=== PATIENT | female | born 1955 | race Caucasian/White ===

== ENCOUNTER 2019-08-21 05:50 | Day surgery (SDC) | payer BC ==
[2019-08-21] MEDS ORDERED: ALFENTANIL HCL 500 MCG/1ML, 2ML AMP IV ONE (05:51)
[2019-08-21] MEDS ORDERED: LIDOCAINE 2% MDV (20MG/ML) 20ML VIAL IV ONE (05:51)
[2019-08-21] MEDS ORDERED: *PACU ONLY* KETAMINE HCL 10 MG/ML (20ML) VIAL IV ONE (05:51)
[2019-08-21] MEDS ORDERED: PROPOFOL 10 MG/ML VIAL IV ONE (05:51)
[2019-08-21] MEDS ORDERED: KETOROLAC 30 MG/ML VIAL IVP ONE (05:51)
[2019-08-21] MEDS ORDERED: MIDAZOLAM HCL 2MG/2ML VIAL IV ONE (05:51)
[2019-08-21] MEDS ORDERED: CEFAZOLIN 2 Gram 2 GM/50 ML BAG IVPB ONE (06:00)
[2019-08-21] MEDS ORDERED: RINGERS SOLUTION,LACTATED 1,000 ML IV ONE (06:30)
[2019-08-21] MEDS ORDERED: LIDOCAINE 2% MDV (20MG/ML) 20ML VIAL SQ ONE (07:45)
[2019-08-21] MEDS ORDERED: BUPIVACAINE 0.5% (5MG/ML) PF 30ML VIAL SQ ONE (07:45)
[2019-08-21] MEDS ORDERED: HYDROCODONE/APAP 7.5/325MG TABLET PO ONE (09:48)
--- NOTE | 2019-08-21 14:18 | Operative Note ---
DATE OF SURGERY: 08/21/2018 PREOPERATIVE DIAGNOSIS: Hallux rigidus left painful hammertoe second and third toes left foot. POSTOPERATIVE DIAGNOSIS: Hallux rigidus left painful hammertoe second and third toes left foot. OPERATION: LENNY-IMPLANT ARTHROPLASTY FIRST METATARSAL PHALANGEAL JOINT LEFT FOOT AND HAMMERTOE REPAIR WITH SMART TOE IMPLANT SECOND AND THIRD TOES LEFT FOOT. SURGEON: Luigi Stroud DPM ANESTHESIA: Local with IV sedation. INDICATION FOR PROCEDURE: Patient had painful hallux rigidus and painful hammertoe second and third digits left foot. Not responsive to previous conservative care. X-ray exam shows degenerative changes consistent with hallux rigidus first metatarsal phalangeal joint left foot and hammertoes of the second and third toes left foot. PROCEDURE: The patient was brought into the OR Suite and placed supine upon the OR table. After successful IV sedation was achieved a tibial nerve block and a first metatarsal and second and third digital blocks were given in the left foot with approximately 30 ml of a 50/50 mixture of 1% Lidocaine plain and 0.5% Marcaine plain given after topical alcohol prep. Padding put on left ankle. Pneumatic cuff put in place. The left foot and ankle was prepped and draped in the usual sterile manner and exsanguinated with an Esmarch and the tourniquet was raised to 250 mmHg. Anesthesia check indicated appropriate anesthesia. Incision outlined and made dorsomedial aspect of first metatarsal phalangeal joint left foot approximately 4 cm in length. Sharp and blunt dissection utilized to deepen the incision. All vital structures identified and retracted throughout the procedure. Linear capsulotomy performed and reflected exposing significant bony hypertrophy dorsally as well as to the base of the proximal phalanx consistent with hallux rigidus. Approximately 60% of the first metatarsal head was denuded of cartilage as well and loose cartilage was curetted and the head was drilled multiple times with the 0.045 K-wire to help promote deposition of fibrocartilage. The base of the proximal phalanx was removed with the power sagittal saw, cooled with saline perpendicular to the weight bearing surface as well as to its longitudinal bisection. The base was removed with sharp dissection to maintain the long flexor tendon. A sizer was used and determined was a small sizer and implant would be indicated. A small sizer was put in place and reviewed under C-arm and fit well. The stem for the implant was made with the broach and a small implant was inserted without difficulty. There was excellent bone to implant, contact and interface, fit well. Excellent range of motion noted. C-arm indicated appropriate position of implant. The contracted capsule was removed at least from the plantar aspect of the first metatarsal head as well and hypertrophic bone was removed with the power sagittal saw throughout the metatarsal head as well, cooled with saline. No rough edges left in place. Hypertrophic synovium debrided. Attention was then directed where the exact same procedure was performed on the second and third digits of the left foot as follows. A linear incision was made dorsal aspect of the contracted proximal interphalangeal joint approximately 2.5 cm in length. Hansel and blunt dissection utilized to deepen the incision. All vital structures identified and retracted without difficulty. An extensor tenotomy and capsule was released along with collaterals exposing the adjacent surfaces of the proximal interphalangeal joint to each digit. This was removed with the power sagittal saw parallel to one another as well as perpendicular to the weight bearing surface. Fragments of bone removed. Good bone to bone contact noted per C-arm. The proximal phalanx was drilled and the base of the middle phalanx was broached and it was determined that a 19 mm 10 degree angled smart toe for each digit was indicated and therefore each was put in place in typical fashion without difficulty. There is excellent bone ton bone contact tibial osteotomies. C-arm indicated correction of the hammertoes, implant in good position with good bone to bone contact at the proximal interphalangeal joint with rectus digits. The wounds were flushed with copious amounts of sterile saline. The capsule and extensor tendons were reapproximated in simple interrupted fashion with 3-0 Vicryl, subcu closed in similar fashion with 4-0 Vicryl, skin to the great toe was closed in subcuticular continuous fashion with 5-0 PDS reinforced in simple interrupted fashion with 3-0 nylon. The incisions to the second and third digits closed in simple interrupted fashion with 3-0 nylon. A combination of sterile Adaptic, 4x4's, 4-inch Jad and aidan wrap were applied. Tourniquet deflated to 0 mmHg. Hyperemic flush noted to all digits. The patient tolerated the procedure well and was transferred to the Recovery Room in stable condition with vascular status intact. She is to minimize ambulation with CAM walker and crutches, keep extremity elevated, take pain medications as needed, contact me by cell phone if needed and she will follow-up in the office in the next several days. JOB NUMBER: [id number] MTDD
== END 2019-08-21 10:05 | disposition home or self-care (01) ==
LOC: SUR 05:50
PROVIDERS: ATTEND Podiatrist
DX: M20.22 Hallux rigidus, left foot (principal); M20.42 Other hammer toe(s) (acquired), left foot; J44.9 Chronic obstructive pulmonary disease, unspecified; E03.9 Hypothyroidism, unspecified; J45.909 Unspecified asthma, uncomplicated
CPT/HCPCS: C1713; C1776; J1885; J7120